=== PATIENT | female | born 1975 | race Caucasian/White ===

== ENCOUNTER → 2018-09-06 | Outpatient (CLI) | payer OTHER ==
--- NOTE | 2018-09-07 03:22 | REP ---
Clinical: Abdominal pain. Technique: Axial noncontrast images from the lung bases to the pubic symphysis with coronal and sagittal re-formations. Findings: Lung bases are clear. Liver, spleen, pancreas, bilateral adrenal glands and kidneys are normal for noncontrast evaluation. Evidence of prior cholecystectomy noted. The enteric system is without obstruction or acute inflammatory process. Pelvis demonstrates normal bladder and evidence for prior hysterectomy. No pelvic fluid. No ascites. No free air. No obvious adenopathy. Abdominal aorta without aneurysm. Musculoskeletal structures without focal osseous abnormality. Very subtle fat containing periumbilical hernia cannot be excluded. Impression: No acute abdominopelvic pathology appreciated. Electronically Signed by Blas Reyes MD 09/07/2018 03:13 A
== END ==
LOC: M RAD 16:42
PROVIDERS: ATTEND Family Medicine
DX: R10.9 Unspecified abdominal pain (principal)

== ENCOUNTER → 2019-02-21 | Outpatient (REF) | payer OTHER | LOC: M SFHCRHEU 14:15 | PROVIDERS: ATTEND Internal Medicine Rheumatology | DX: M35.9 Systemic involvement of connective tissue, unspecified (principal) ==

== ENCOUNTER → 2019-02-22 | Outpatient (REF) | payer OTHER ==
[2019-02-26 00:07] LABS: ANA (HEP2) Positive (.); CYCLIC CITRULLINATED PEPTIDE 11 units (0-19)
== END ==
LOC: M SFHCRHEU 11:25
PROVIDERS: ATTEND Internal Medicine Rheumatology
DX: M35.9 Systemic involvement of connective tissue, unspecified (principal)

== ENCOUNTER → 2019-03-22 | Outpatient (CLI) | payer OTHER ==
--- NOTE | 2019-03-22 10:05 | PFTRPT ---
Height: 60.00 Inches Weight: 135.00 Lbs BSA: 1.58 Diagnosis: M35.9 DATE OF PROCEDURE: 03/22/2019 ORDERED BY: Dr. Jaguar Ramirez Spirometry: Pre and post bronchodilator study of excellent technical quality. Forced vital capacity normal. FEV1 in proportion. Obstructive index is, therefore, normal. Flow Volume Loop: Expiratory limb of the flow volume loop is normal. No significant bronchodilator response identified. Lung Volumes: Total lung capacity elevated. Residual volume is in proportion. Diffusing Capacity: Diffusing capacity normal. Airway Mechanics: Airway resistance and conductance are normal. Hemoglobin: Hemoglobin acceptable at 13. IMPRESSION: Essentially normal study. MTDD
--- NOTE | 2019-03-22 20:06 | ECHO ---
DATE OF PROCEDURE: 03/22/2019 Date of : 1975 Age: 43 Gender: Female Height: 60 inches Weight: 135 pounds Body surface area: 1.58 meters squared Outpatient. REFERRING PHYSICIAN: Dr. Jaguar Ramirez INDICATION: Murmur, connective tissue disorder. MEASUREMENTS: 2D Measurements: RV: 2.8 cm LV: 4.3 cm Septum: 0.8 cm Posterior wall: 0.8 cm Aortic root: 2.9 cm LA: 3.4 cm LVEF: 65% Doppler Measurements: AV: 1.16 meters per second LVOT: 1.10 meters per second LVOT diameter: 2.0 cm MV-E: 90, A: 70, EA ratio: 1.3 Early mitral deceleration time: 190 milliseconds E prime: 8.7, A prime: 8, E/E prime ratio: 10 PV: 1.0 meters per second Pulmonary artery acceleration time: 123 milliseconds PASP: 28 mmHg IVC: 1.3 cm COMMENTS: Normal sinus rhythm without intraventricular conduction disturbance. M-mode and two-dimensional echocardiography was performed with pulsed, continuous wave, color flow, and tissue Doppler studies. Normal left ventricular size, wall thickness and wall motion. Normal left atrial size and Doppler assessment of left ventricular (LV) diastolic function and estimated mean left atrial pressure. Normal right heart chamber sizes, wall motion and estimated pulmonary arterial pressure. Normal inferior vena cava (IVC) size and collapse against an elevated central venous pressure. Slight thickening of three equal size aortic cusps with adequate cusp separation but trace to very mild insufficiency. Normal aortic dimensions. Normal appearing mitral valvular apparatus with adequate leaflet excursion. No posterior systolic buckling. No mitral insufficiency. Normal appearing tricuspid valve with trace insufficiency. No apparent intracardiac mass or pericardial effusion.
== END ==
LOC: M CARPUL 08:25
PROVIDERS: ATTEND Internal Medicine Rheumatology
DX: M35.9 Systemic involvement of connective tissue, unspecified (principal)